=== PATIENT | female | born 1965 | race Two or more races ===

== ENCOUNTER 2023-03-25 05:32 | Day surgery (SDC) | payer OTHER ==
[~2023-03-25 05:32] MED LIST: CLONAZEPAM0.5 MG PO; HORIZANT300 MG PO; HYDROCHLOROTHIA25 MG PO; LIPITOR20 MG PO; LUNESTA2 MG PO; MELATONIN10 M5 PO; NEXIUM40 M1 PO; ZESTRIL30 MG PO
[2023-03-25] MEDS ORDERED: CEFAZOLIN SODIUM 1,000 MG VIAL ONE (07:36)
[2023-03-25] MEDS ORDERED: CEFAZOLIN SODIUM 1,000 MG VIAL IV ONE (09:15)
== END 2023-03-25 13:15 | disposition home or self-care (01) ==
LOC: CIR.AMB 05:32
PROVIDERS: ATTEND Obstetrics & Gynecology Gynecology
DX: N88.4 Hypertrophic elongation of cervix uteri (principal); Z88.6 Allergy status to analgesic agent; Z20.822 Contact with and (suspected) exposure to COVID-19